=== PATIENT | female | born 1995 | race Caucasian/White ===

== ENCOUNTER 2016-09-04 13:18 | Outpatient (CLI) | payer OTHER | END 2016-09-04 23:59 | DX: N89.8 Other specified noninflammatory disorders of vagina (principal); Z11.3 Encounter for screening for infections with a predominantly sexual mode of transmission ==

== ENCOUNTER 2016-09-14 10:20 | Outpatient (CLI) | payer OTHER | END 2016-09-14 10:21 | disposition home or self-care (01) ==

== ENCOUNTER 2016-11-30 08:00 | Outpatient (CLI) | payer OTHER | END 2016-11-30 08:01 | disposition home or self-care (01) | LOC: LAB.R 08:00 | PROVIDERS: ATTEND Obstetrics & Gynecology | DX: Z36 Encounter for antenatal screening of mother (principal) | CPT/HCPCS: 87081; 87797 ==

== ENCOUNTER 2016-12-28 10:57 | Inpatient (IN) | payer OTHER ==
[2016-12-28] MEDS ORDERED: fentaNYL 100 MCG/2 ML VIAL IVP PRN (12:41)
[2016-12-28] MEDS ORDERED: ONDANSETRON 4 MG/2 ML VIAL IVP PRN (12:41)
[2016-12-28] MEDS ORDERED: OXYTOCIN/LACTATED RINGERS 250 ML IV SCH (13:00)
[2016-12-28] MEDS ORDERED: LACTATED RINGERS 1,000 ML IV SCH ×2 (13:00→18:00)
[2016-12-28] MEDS ORDERED: SODIUM CHLORIDE FLUSH 0.9% 10 ML SYRINGE IVP SCH (14:00)
[2016-12-28 14:30] LABS: BASOPHILS % (AUTO) 0.3 %; EOSINOPHILS # (AUTO) 0.1 10^3/uL (0.0-0.7); EOSINOPHILS % (AUTO) 0.6 %; HCT - HEMATOCRIT 36.4 % (37.0-47.0); HGB - HEMOGLOBIN 12.9 g/dL (12.0-16.0); LYMPHOCYTES # (AUTO) 1.5 10^3/uL (1.5-3.5); LYMPHOCYTES % (AUTO) 15.1 %; MEAN CORPUSCULAR HEMOGLOBIN 32.6 pg (27.0-31.0); MEAN CORPUSCULAR HGB CONC 35.4 g/dL (32.0-36.0); MEAN CORPUSCULAR VOLUME 92.2 fL (81.0-99.0); MEAN PLATELET VOLUME 9.9 fL (7.9-10.8); MONOCYTES # (AUTO) 0.7 10^3/uL (0.0-1.0); MONOCYTES % (AUTO) 7.2 %; NEUTROPHILS # (AUTO) 7.5 10^3/uL (1.5-6.6); NEUTROPHILS % (AUTO) 76.8 %; RED BLOOD COUNT 3.95 10^6/uL (4.20-5.40); RED CELL DISTRIBUTION WIDTH 12.6 % (12.0-15.0); UNCORRECTED WHITE BLOOD COUNT 9.8 x10^3/uL; WHITE BLOOD COUNT 9.8 x10^3/uL (4.8-10.8)
[2016-12-28] MEDS: SODIUM CHLORIDE FLUSH 0.9% 10 ML SYRINGE IVP PRN ×3 (14:44→20:42)
[2016-12-28] MEDS ORDERED: MINERAL OIL LIGHT 10 ML MC ONE (15:47)
[2016-12-28] MEDS ORDERED: LIDOCAINE 1% 50 ML MDV ONE (15:47)
--- NOTE | 2016-12-28 16:45 | PROVIDER PROGRESS NOTE ---
Labor Progress Note - Instructions [place]/Slash: -Left hand click circles element as positive or present. -Right hand click slashes element as negative or not present. - Uterine Monitoring Uterine Monitoring Mode: positive: External toco Contraction Frequency (min/apart): Q2min Contraction Intensity: positive: Moderate to strong Uterine Resting Tone: positive: Soft - Monitoring Monitor Mode: positive: External ultrasound Heart Rate Baseline: 150 Heart Rate Variability: positive: Moderate (6-25 bmp) Accelerations: positive: Present, 15x15 Decelerations: positive: None Strip Review: positive: Category I - Vaginal Exam Dilation (in cm): 9 Effacement (%): 1005 Station: positive: 0 Cervical Position: positive: Anterior - Labor Progress Note Labor Progress Note/Additional Text: AROM 1630 CLEAR, Pt declines epidural. in attendance.
--- NOTE | 2016-12-28 17:30 | DELIVERY NOTE ---
Delivery Note - Instructions [place]/Slash: -Left hand click circles element as positive or present. -Right hand click slashes element as negative or not present. - Labor Labor: positive: Spontaneous - Delivery Method Delivery Method: positive: Spontaneous vaginal delivery - Presentation Presentation: positive: Vertex - Nuchal Cord Nuchal Cord: positive: None - Anesthetic Anesthetic Type: - Amniotic Fluid Description Amniotic Fluid Description: positive: Clear - Episiotomy Type Episiotomy Type: positive: None - Laceration Laceration: positive: None - Delivery Outcome Delivery Outcome: positive: Livebirth - [place]: positive: Placed in direct skin contact with mother [place] sex: positive: Male - Cord Cord: positive: 3 vessels - Placenta Placenta: positive: Intact, Spontaneous - Estimated Blood Loss Estimated Blood Loss (in cc): 300 - Post Delivery Events Post Delivery Events: positive: No post delivery events - Delivery Comments (Free Text/Narrative) Delivery Comments (Free Text/Narrative): 9/9, AWAIT WGT
[2016-12-28] MEDS ORDERED: OXYTOCIN/LACTATED RINGERS 250 ML IV ONE (17:37)
[2016-12-28] MEDS ORDERED: HYDROcod/ACETAM 5/325 MG TABLET PO PRN (17:37)
[2016-12-28] MEDS ORDERED: ACETAMINOPHEN 325 MG TABLET PO PRN (17:37)
[2016-12-28] MEDS ORDERED: WITCH HAZEL/GLYCERIN 1 EACH MED..PAD TOP PRN (17:37)
[2016-12-28] MEDS ORDERED: diphenhydrAMINE 25 MG CAPSULE PO PRN (17:37)
[2016-12-28] MEDS ORDERED: HYDROCORTISONE/PRAMOXINE 10 GM PR PRN (17:37)
[2016-12-28] MEDS: IBUPROFEN 600 MG TABLET PO SCH ×2 (18:26→23:44)
[2016-12-28] MEDS: DOCUSATE SODIUM 100 MG CAPSULE PO SCH (20:42)
[2016-12-29] MEDS: IBUPROFEN 600 MG TABLET PO SCH ×4 (06:24→19:41)
--- NOTE | 2016-12-29 09:08 | HISTORY & PHYSICAL EXAMINATION ---
DATE OF ADMISSION: 12/28/2016 DIAGNOSES 1. A 40-week 3-day gestation. 2. Entering the active phase of labor. 3. Prior history of chlamydia, treated, [id number] negative. Patient is a 21-year-old primigravida at 40 weeks' 3 days' gestation based on a final EDC of 25 December, which was calculated by LMP of 20 March and consistent with a 10-week ultrasound. She began her care at [facility] and transferred to [facility] at or about 20 weeks' gestation. Earlier in , there was positive chlamydia which was treated, with a negative [id number] on 26 June. Thus far, her care has been unremarkable. She reports contractions and bloody show beginning at 0600 hours. She has no signs or symptoms of preeclampsia, though she has a history of migraine headaches. Currently she has no migraines and simply reports occasional "floater." There is no epigastric tenderness, and her blood pressure is essentially normal. She has no foul vaginal discharge. On 03 September she reported a discharge, and GC/ chlamydia negative, as well as a fern. OBSTETRIC LABORATORIES: Trisomy screen normal. HIV negative. Rubella immune. Hepatitis B surface antigen negative. Hepatitis C screen negative. RPR negative. Blood type B positive. Antibody screen negative. Level 1 anatomy screen shows male fetus without any evident anomalies. GBS status negative. Glucola challenge test normal, 105. PAST MEDICAL HISTORY 1. No chronic disease history. 2. The patient has a history of hairline fracture of right ankle. PAST SURGICAL HISTORY: None. ALLERGIES: NONE. MEDICATIONS 1. vitamins. 2. Iron. SOCIAL HISTORY: . [employer] member, works in [employer]. Reformed smoker , had smoked less than pack a day for 10 years but stopped 1 year ago. No drug or alcohol use reported. GENETICS/FAMILY HISTORY: Maternal grandfather, diabetes; Alzheimer disease, maternal grandmother. No inheritable diseases known, recurrent losses in the family. REVIEW OF SYSTEMS CONSTITUTIONAL: Negative. HEENT: Negative. LUNGS: Negative. CARDIAC: Negative. GASTROINTESTINAL: Negative. GENITOURINARY: Reference HPI; currently no complaints and regular menses. MUSCULOSKELETAL: Negative. NEUROLOGIC: Occasional "migrainous headaches." No aura or complex signs. DERMATOLOGIC: Negative. PHYSICAL EXAMINATION GENERAL: Patient uncomfortable, bouncing on birthing ball, enduring contractions well. VITAL SIGNS: Temperature 96.4, pulse 98, baseline blood pressure 135/94 but defervesced to 118/83, respirations 16, and pulse oximetry 99. HEENT: Supple neck. No thyromegaly. Dentition in good repair. Moist mucous membranes. LUNGS: Clear to auscultation. CARDIAC: Regular. No murmur, no gallop. ABDOMEN: No hepatosplenomegaly. No tenderness noted. Gravid. UTERUS: Appropriate size, vertex presentation, 7 to 7.5-pound fetus. Mild to moderate contractions regularly. EXTERNAL MONITOR: Category 1, baseline 120 of moderate variability, reactive. EXTERNAL GENITALIA: [place] shaven; no lesions. VAGINA: No blood or discharge. CERVIX: 5-6 cm, 100%, 0 station, membranes intact. EXTREMITIES: Mobile throughout. No deficit observed. NEUROLOGIC: Patellar reflexes 1+ and equal. No clonus elicited. Motor and sensory normal. In good spirits and appropriate. SKIN: Survey of skin finds decorative tattoo on the arms but no concerning lesions. LABORATORY DATA: Baseline CBC and type and screen sent. ASSESSMENT: This is a term approaching the active phase of labor. There are no concerns about wellbeing based on EFM tracing. Bony pelvis seems adequate for a 7.5-pound fetus. Anticipate vaginal . At this time, patient desires not to have epidural. PLAN: Discussed various pain control options. Also discussed rupture of membranes, which she would like to hold off until her comes back to be available. JOB #: [id number] EXT JOB #:[id number] [facility]ITAL[facility]nestina
--- NOTE | 2016-12-29 09:10 | OPERATIVE REPORT ---
DATE OF SURGERY: 12/28/2016 00:00:00 PREOPERATIVE DIAGNOSES 1. Term , 40 weeks 3 days. 2. Spontaneous labor. POSTOPERATIVE DIAGNOSES 1. Successful delivery of a living male . 2. Term , 40 weeks 3 days. 3. Spontaneous labor. 4. SGA PROCEDURES: Manually assisted vaginal delivery. [employer] ANALYST: Devan Pond MD, FACOG. ANESTHESIA: None. ESTIMATED BLOOD LOSS: 300. COMPLICATIONS: None. FINDINGS: At 1714 hours, a living male infant was born, weighing 5 lbs 13 oz and scoring Apgars of 9/9. There were no obvious congenital anomalies or trauma. The infant responded well. At 1717 hours, the placenta was spontaneously delivered intact and was judged to be grade 2. Cord was 3-vessel, and there was no cord entanglement. Uterus responded well to massage and Pitocin. TECHNIQUE: Patient achieved completion at or about 1700 hours and began to push spontaneously. She smoothly brought the vertex to the perineum. Stretch and push method with sterile mineral oil was used. She atraumatically crowned at 1714 hours, and the delivery of the shoulders was uneventful. Post delivery the was placed on the maternal abdomen. There was a strong lusty cry. We waited until the pulsations in the cord stopped. Then the cord was doubly clamped and transected. Cord blood sample was taken. With gentle traction and maternal pushing, the placenta was delivered intact. The amount of blood loss was limited due to response of the uterus to Pitocin and massage. The vagina and perineum were inspected and found to be completely intact. The cervix likewise was intact. Mother, baby, and father all bonded well and were quite happy. Maternal blood type is Rh positive, RPR negative, hepatitis B surface antigen negative, and GBS status negative. JOB #: [id number] EXT JOB #:[id number] [facility]
[2016-12-29] MEDS: DOCUSATE SODIUM 100 MG CAPSULE PO SCH (09:42)
--- NOTE | 2016-12-29 11:49 | PROVIDER PROGRESS NOTE ---
Subjective - Prog Note Date Prog Note Date: 12/29/16 - Subjective Pt reports feeling: Improved (RECOVERING WELL) Objective - Vital Signs/Intake & Output Vital Signs: Vital Signs x48h Temp Pulse Resp BP Pulse Ox 12/29/16 08:00 98.4 F 72 16 102/64 99 12/29/16 05:32 97.7 F 87 16 115/63 Intake & Output: Intake & Output 12/26/16 12/27/16 12/28/16 12/29/16 23:59 23:59 23:59 23:59 Intake Total 185 500 Output Total 800 Balance -615 500 - Lab Results Fish Bones: 12/28/16 13:10 Other Labs: Lab Results x24hrs 12/28/16 Range/Units 13:10 WBC 9.8 (4.8-10.8) x10^3/uL RBC 3.95 L (4.20-5.40) 10^6/uL Hgb 12.9 (12.0-16.0) g/dL Hct 36.4 L (37.0-47.0) % MCV 92.2 (81.0-99.0) fL MCH 32.6 H (27.0-31.0) pg MCHC 35.4 (32.0-36.0) g/dL RDW 12.6 (12.0-15.0) % Plt Count 242 (130-450) 10^3/uL MPV 9.9 (7.9-10.8) fL Neut # 7.5 H (1.5-6.6) 10^3/uL Lymph # 1.5 (1.5-3.5) 10^3/uL [place] # 0.7 (0.0-1.0) 10^3/uL Eos # 0.1 (0.0-0.7) 10^3/uL Baso # 0.0 (0.0-0.1) 10^3/uL Absolute Nucleated RBC 0.00 x10^3/uL Nucleated RBCs 0.0 /100WBC Exam - Exam Vital Signs: Vital Signs (72 hours) 12/28/16 12/28/16 12/28/16 11:13 11:30 11:44 Temperature 96.4 F L Heart Rate [ 98 Radial] Respiratory 16 Rate Blood Pressure 135/94 H 118/83 H 120/88 H [Left Brachial artery] O2 Saturation 99 12/28/16 12/28/16 12/28/16 17:25 17:30 17:45 Temperature 101.8 F H Heart Rate [ 75 77 Radial] Respiratory 16 Rate Blood Pressure 129/75 129/78 127/75 [Left Brachial artery] O2 Saturation 12/28/16 12/28/16 12/28/16 18:00 18:15 18:37 Temperature Heart Rate [ 67 76 77 Radial] Respiratory 18 16 Rate Blood Pressure 128/70 114/72 121/80 [Left Brachial artery] O2 Saturation 12/28/16 12/28/16 12/28/16 18:45 19:00 19:22 Temperature 98.4 F 98.2 F Heart Rate [ 82 80 80 Radial] Respiratory 16 16 Rate Blood Pressure 115/60 122/70 117/73 [Left Brachial artery] O2 Saturation 12/28/16 12/28/16 12/28/16 19:59 20:46 23:10 Temperature 97.5 F L Heart Rate [ 78 70 85 Radial] Respiratory 16 16 16 Rate Blood Pressure 127/73 122/71 126/69 [Left Brachial artery] O2 Saturation 12/29/16 12/29/16 12/29/16 01:56 05:32 08:00 Temperature 97.0 F L 97.7 F 98.4 F Heart Rate [ 78 87 72 Radial] Respiratory 16 16 16 Rate Blood Pressure 121/77 115/63 102/64 [Left Brachial artery] O2 Saturation 98 99 General: Alert, Oriented x3, Cooperative, No acute distress HEENT: Mucous membr. moist/pink Abdomen: Normal bowel sounds, Soft, Other (Uterus 17 wk Firm Nontender; mild nonfoul rubra) Extremities: No edema, Normal pulses Skin: No significant lesion Neurological: Normal speech, Sensation intact Psych/Mental Status: Mental status NL
[2016-12-30] MEDS: DOCUSATE SODIUM 100 MG CAPSULE PO SCH ×2 (02:26→12:57)
[2016-12-30] MEDS: IBUPROFEN 600 MG TABLET PO SCH (09:38)
--- NOTE | 2016-12-30 11:28 | Discharge Plan ---
Discharge Plan Disposition: 01 Home, Self Care Condition: Good Diet: Regular Activity Restrictions: No Restrictions Shower Restrictions: No Driving Restrictions: No Weight Bearing: Full Weight Instruction Topics: Breastfeed Holds, Nutrition , Breastfeed How To Additional Instructions or Follow Up instructions: REPORT FEVER, FOUL DISCHARGE OR COPIUS BLEEDING No Smoking: If you smoke, Please STOP! Call for help. Follow-up with: Devan Pond MD [Provider Admit Priv/Credential] -
[2016-12-30 12:09] VITALS: BP 115/77
--- NOTE | 2016-12-30 12:26 | DISCHARGE SUMMARY ---
DATE OF ADMISSION: 12/28/2016 DATE OF DISCHARGE: 12/30/2016 DIAGNOSES 1. A 40-week 3-day gestation in active labor. 2. Successful delivery of a living male infant. 3. Small for gestational age infant. PROCEDURE. Manually-assisted vaginal delivery over an intact perineum, no lacerations. COMPLICATIONS: None. HISTORY: The patient is a 21-year-old primigravida at 40 weeks 3 days gestation who presented in active labor. She was at 4 cm at the time of initial evaluation, and progressed into the active phase shortly thereafter. She had a prior history of chlamydia that was successfully treated in June. OBSTETRIC LABORATORIES: Trisomy screen negative. HIV negative. Rubella immune. Hepatitis B surface antigen negative. Hepatitis C screen negative. RPR negative. Blood type B positive, antibody screen negative. GBS negative. Glucola test normal at 105. The patient was evaluated and found to have a cat 1 strip. She declines narcotic and epidural analgesia. Reference typewritten H and P. HOSPITAL COURSE: The patient labored with good self-control and smoothly progressed to complete. At 1714 hours, she birthed a living male infant weighing 5 pounds 13 ounces, scoring Apgars of 9 and 9. Infant had strong response. Placenta was delivered intact and was grade 2. Total blood loss was 300 mL without any complications in the delivery. Reference type written note. Post-delivery, the patient breast fed well and the did well as well. Nursing education on , self-care and infant care was given. The (Violetta) was evaluated by Pediatrics. On day #2, the patient was ready for discharge home. Complete self- care and care instructions were given, as well as warning signs. The patient will follow up in 6 weeks at the [facility] for routine post-delivery care. Followup for baby Violetta is being arranged through Pediatrics. JOB #: [id number] EXT JOB #:[id number] MTDErnestina
--- NOTE | 2016-12-30 13:20 | Labor Flowsheet ---
Labor Flowsheet Datetime Report Generated by CPN: 12/30/2016 13:20 Datetime: 12/30/2016 12:07 VITAL SIGNS NBP Sys/Kim/Mean (mmHg): 115 : 77 : 86 Pulse: 104 Temperature (F): 97.9 Temperature (C): 36.6 Temperature (C): 36.6 LaborFlag: Labor Datetime: 12/28/2016 17:14 UTERINE ACTIVITY Monitor Mode: External Frequency (min): 1-1.5 Quality: Strong Duration (sec): 30-40 Pattern: Normal: <= 5 Contractions in 10 Minutes Resting Tone (Palpate): Relaxed ASSESSMENT A Monitor Mode: External US Variability: Moderate 6-25 bpm Accelerations: 15X15 Decelerations: Variable Oxygen Method: Room Air Pushing Position: Pushing with Contractions COMMUNICATION Communication: Provider at Bedside Provider Notified (Name): Pond Datetime: 12/28/2016 17:08 FHR Baseline Changes: No Baseline Change Category: Category II TEACHING Instructional Method: Verbal; Patient Instructed Labor/Induction: Pushing Methods Pushing Progress: Descent with Pushing Datetime: 12/28/2016 17:04 VAGINAL EXAM Dilatation (cm): 10.0 Station: 3 Exam by: Pond Vaginal Bleeding: Normal Show STAGE 2 Pushing: Involuntary Pushing Datetime: 12/28/2016 17:03 Communication Comments: in room Datetime: 12/28/2016 17:01 Patient Position/Activity: Left Tilt Notification Reason: Status Update Datetime: 12/28/2016 16:53 Effacement (%): 100 Cervix, Consistency: Soft Cervix, Position: Anterior Datetime: 12/28/2016 16:45 FHR Baseline Rate : 145 Actions for Decelerations: Other Pain Presence: Intermittent Pain Type: Contraction Pain Location: Abdomen Pain Coping: Breathing Through Contractions; Writhing Datetime: 12/28/2016 16:30 PAIN Pain Scale: 10 Pain Goal: 6 Membrane Status: Ruptured Membranes Rupture Method: Artificial Amniotic Fluid Color: Clear Amniotic Fluid Amount: Moderate Amniotic Fluid Odor: Normal Procedures: Sterile Vag Exam Comfort Measures: Breathing/Relaxation; Coaching Datetime: 12/28/2016 16:16 Stage of : Labor Datetime: 12/28/2016 15:24 SpO2 (%): 99 Datetime: 12/28/2016 15:19 MATERNAL ASSESSMENT Headache: Denies Patient Care Comments: pt to jacuzzi Datetime: 12/28/2016 14:25 Monitor Interventions for FHR: Ultrasound Adjusted Provider Reviewed Strip: Yes Datetime: 12/28/2016 13:10 PATIENT CARE IV/Blood Work: IV Started; IV Saline Locked
== END 2016-12-30 13:15 | disposition home or self-care (01) | DRG 775 ==
LOC: WFO 10:57 → OB 10:58 → WFO 12:24 → OB 12:25
PROVIDERS: ADMIT Obstetrics & Gynecology; ATTEND Obstetrics & Gynecology
PROC: 10E0XZZ Delivery of Products of Conception, External Approach (ICD-10-PCS; principal; 2016-12-28)
PROC: 10907ZC Drainage of Amniotic Fluid, Therapeutic from Products of Conception, Via Natural or Artificial Opening (ICD-10-PCS; 2016-12-28)
DX: O80 Encounter for full-term uncomplicated delivery (principal); Z3A.40 40 weeks gestation of pregnancy; Z37.0 Single live birth; Z87.891 Personal history of nicotine dependence; Z86.19 Personal history of other infectious and parasitic diseases
CPT/HCPCS: 85025; 99212